=== PATIENT | female | born 1950 | race Caucasian/White ===

== ENCOUNTER → 2018-05-13 | Day surgery (SDC) | payer MEDICARE, BC ==
[~2018-05-13] MED LIST: DIATR MEGLU/DIATRIZOATE SODIUM 30 ML BOTTLE (GASTROGRAPHIN) ONE; FENTANYL PF 100MCG/2ML AMPUL ONE; LIDOCAINE HCL/PF 1% 30 ML SDV ONE; ROCURONIUM BROMIDE 50 MG/5 ML ONE; methylPREDNISolone ACETATE 80 MG/ML VIAL ONE
== END | disposition home or self-care (01) ==
LOC: DS 07:37
PROVIDERS: ATTEND Specialist
DX: M19.011 Primary osteoarthritis, right shoulder (principal); M75.41 Impingement syndrome of right shoulder; M65.811 Other synovitis and tenosynovitis, right shoulder; G89.18 Other acute postprocedural pain; Z98.890 Other specified postprocedural states; E78.00 Pure hypercholesterolemia, unspecified; Z80.3 Family history of malignant neoplasm of breast; Z79.899 Other long term (current) drug therapy
CPT/HCPCS: 29824; 29826; 64415; 88304; 88311; A4217; A6253; J1040; J3010; J3490; Q9963